=== PATIENT | male | born 1965 | race Caucasian/White ===

== ENCOUNTER 2018-11-23 18:17 | Emergency (ER) | payer BC ==
[~2018-11-23] VITALS: Ht 185.4 cm; Wt 129.3 kg
[2018-11-23] MEDS ORDERED: FAMOTIDINE 20 MG TAB PO NR (18:30)
[2018-11-23] MEDS ORDERED: DIPHENHYDRAMINE HCL 25 MG CAP PO NR (18:30)
[2018-11-23] MEDS ORDERED: DEXAMETHASONE SOD PHOS 10 MG/1 ML VIAL IV NR (18:30)
[2018-11-23 20:16] VITALS: BP 140/89
== END 2018-11-23 20:18 | disposition home or self-care (01) ==
LOC: ER 18:21
DX: T63.461A Toxic effect of venom of wasps, accidental (unintentional), initial encounter (principal); T78.3XXA Angioneurotic edema, initial encounter; T78.40XA Allergy, unspecified, initial encounter
CPT/HCPCS: 99283; J1100